=== PATIENT | female | born 1955 | race Caucasian/White ===

== ENCOUNTER 2017-08-26 10:01 | Day surgery (SDC) | payer BC ==
[~2017-08-26] VITALS: Ht 170.2 cm; Wt 76.7 kg
[2017-08-26 11:25] VITALS: Ht 170.2 cm; Wt 76.7 kg
[2017-08-26] MEDS ORDERED: PAIN MEDICATION (11:28)
[2017-08-26] MEDS ORDERED: SIMV20TA2 PO (11:28)
[2017-08-26] MEDS ORDERED: DIABETES MED (11:28)
[2017-08-26] MEDS ORDERED: VITAMIN D (11:28)
[2017-08-26 11:57] VITALS: BP 136/76; PULSE 69; RESP 18
--- NOTE | 2017-08-26 12:28 | OPPN ---
Date/Time of Note Date/Time of Note DATE: 08/26/17 TIME: 12:27 Operative Report Preoperative Diagnosis Screening Postoperative Diagnosis Small sigmoid colon polyp was removed Internal hemorrhoids Operation/Procedure Performed Colonoscopy and biopsy Surgeon see signature line research lab assistant None Anesthesia: moderate sedation Estimated blood loss: none Transfusion Required none Specimen Sigmoid polyp biopsy Grafts/Implants none Complications none OSVALDO CARNES MD Aug 26, 2017 12:28
[2017-08-26] MEDS ORDERED: MIDAZOLAM 1 MG/ML 2 ML INJ ONE ×2 (12:49)
[2017-08-26] MEDS ORDERED: FENTAnyl 50 MCG/ML VIAL ONE (12:49)
[2017-08-26 13:05] VITALS: BP 91/61; PULSE 68; RESP 18
--- NOTE | 2017-08-26 15:14 | GILP ---
DATE OF PROCEDURE: 08/26/2017 NAME OF PROCEDURES: Colonoscopy and biopsy. SURGEON: Osvaldo Adams MD PREOPERATIVE DIAGNOSIS: Screening colonoscopy. POSTOPERATIVE DIAGNOSES: 1. Colonoscopy all the way to the cecum. 2. Small sigmoid colon polyp was removed using biopsy forceps. 3. Internal hemorrhoids. INDICATION FOR THE PROCEDURE: Ms. Miriam Wills is a 62-year-old female patient who was scheduled for screening colonoscopy. The procedure and possible complications are well explained to the patient, she understood and conse nted to the procedure. DESCRIPTION OF PROCEDURE: Under the influence of fentanyl and Versed, the colonoscope was carefully introduced in the rectum and under direct vision it was advanced all the way to the cecum. FINDINGS: The patient had a small sigmoid colon polyp and it was removed using biopsy forceps. She had internal hemorrhoids. She tolerated the procedure very well and there was no complication from the procedure. At the end of the procedures, she was awake with stable vital signs and she was discharged home to the care of her family. IMPRESSION: Please see postoperative diagnoses. PLAN: Next screening colonoscopy in 10 years. Dictated By: OSVALDO NOEL/PEDRO Conf#: [id number] DID#: [id number]
== END 2017-08-26 18:45 | disposition home or self-care (01) ==
LOC: GIL 10:01
PROVIDERS: ATTEND Internal Medicine Gastroenterology
DX: Z12.11 Encounter for screening for malignant neoplasm of colon (principal); K64.8 Other hemorrhoids; E11.9 Type 2 diabetes mellitus without complications
CPT/HCPCS: 45380; 88305; J2250; J3010; Z7610